=== PATIENT | male | born 1960 | race Caucasian/White ===

== ENCOUNTER 2022-06-15 05:55 | Day surgery (SDC) | payer OTHER ==
[2022-06-15] MEDS ORDERED: Lactated Ringers 1,000 ML IV SCH (06:30)
[2022-06-15] MEDS ORDERED: Versed 2 MG/2 ML Injection ONE (07:26)
[2022-06-15] MEDS ORDERED: DIPRIVAN 200 MG/20 ML IV ONE (07:26)
[2022-06-15] MEDS ORDERED: Xylocaine-Mpf 2% 5 Ml Vial ONE (07:26)
[2022-06-15 09:05] VITALS: BP 154/76; PULSE 60; O2SAT 98
--- NOTE | 2022-06-15 13:08 | OP ---
SURGERY DATE/TIME: 06/15/2022 0737 PREOPERATIVE DIAGNOSES: 1) Previous history of testicular cancer. 2) Previous history of colon polyps. POSTOPERATIVE DIAGNOSES: 1) Mild gastritis. 2) Colon polyps x2. PROCEDURES: 1) EGD. 2) Colonoscopy. SURGEON: Benedict Taveras M.D. ANESTHESIA: MAC by Familia Benitez CRNA. ESTIMATED BLOOD LOSS: Minimal. SPECIMENS: 1) Two cold forceps biopsies from the gastric antrum sent for Helicobacter pylori testing. 2) Two hot forceps polypectomies. DESCRIPTION OF PROCEDURE: After informed written consent was obtained, the patient was taken to the endoscopy suite. He had a bite block inserted and placed in the left lateral decubitus position. Anesthesia was titrated to desired level of consciousness and the endoscope was inserted in the posterior oropharynx. Under direct visualization the esophagus was traversed. Upon entering the stomach there was normal rugated gastric mucosa. There were mild gastritis-type changes and no ulceration or bleeding in the gastric antrum. Pylorus was traversed and there were minimal inflammatory changes in the proximal duodenum. Two cold forceps biopsies were taken from the gastric antrum and sent for Helicobacter pylori testing. The remainder of the exam was again within normal limits upon removal of the scope. The scope was removed and the scopes were switched. Digital rectal exam showed normal sphincter tone and no internal lesions. The scope was inserted in the rectum and sequentially the entire colonic mucosa was traversed. The level of the cecum was reached and verified with direct visualization of the ileocecal valve. Upon withdrawal careful mucosal inspection revealed a small sessile polyp in the transverse colon which was removed with hot forceps in its entirety, retrieved and sent for pathology testing. In the proximal descending colon there was likewise a small, flat sessile polyp that was removed in two pieces and sent for pathology testing as well. No other lesions were encountered on withdrawal. Retroflexion showed no internal lesions. The scope was removed and the patient was transferred to the recovery room in good condition. He will follow up for pathology results.
== END 2022-06-15 09:15 | disposition home or self-care (01) ==
LOC: SDC 05:55
PROVIDERS: ATTEND Family Medicine
DX: Z09 Encounter for follow-up examination after completed treatment for conditions other than malignant neoplasm (principal); Z86.010 Personal history of colon polyps; Z85.47 Personal history of malignant neoplasm of testis; K29.70 Gastritis, unspecified, without bleeding; D12.3 Benign neoplasm of transverse colon; D12.4 Benign neoplasm of descending colon
CPT/HCPCS: J2250; J2704